=== PATIENT | male | born 1950 | race Caucasian/White ===

== ENCOUNTER 2018-03-06 20:32 | Inpatient (IN) | payer MEDICARE ==
[~2018-03-06] VITALS: Ht 177.8 cm; Wt 72.7 kg
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
--- NOTE | ~2018-03-06 | PN ---
PATIENT:SUNNY WAITE MEDICAL RECORD: [id number] LOCATION:DOMINIC Gudino112 ADMISSION DATE: 03/06/18 PROGRESS NOTE DATE OF SERVICE: 03/11/2018 SUBJECTIVE: The patient's case was discussed with staff. He has no new complaint. OBJECTIVE: The patient is in good behavioral control, but still is having some depressive symptoms. He denies that he is going to hurt himself. ASSESSMENT: No change in diagnoses. PLAN: I have reviewed the patient's current medications and I believe that if he continues to make progress at this rate, he should be able to reasonably leave the hospital in a few days. His long-term prognosis is guarded. TRANSINT:[id number] Voice Confirmation ID: [id number] DOCUMENT ID: [id number] ANTHONY HARRELL MD at 1325 CC: [id number] DICTATION DATE: 03/11/18 1430 SURFACE GRINDER TENDER: 03/11/18 1542 ADM IN [place] [address] [place] [id number]
--- NOTE | ~2018-03-06 | PN ---
PATIENT:SUNNY WAITE MEDICAL RECORD: [id number] LOCATION:DOMINIC HendricksonBrennan112 ADMISSION DATE: 03/06/18 PROGRESS NOTE DATE OF SERVICE: 03/22/2018 SUBJECTIVE: The patient's case was discussed with staff. He has no new complaint. OBJECTIVE: The patient is in good behavioral control with limited insight about his condition. He generally tolerates his medicines well. ASSESSMENT: No change in diagnoses. PLAN: Supportive and educational interventions were made. Long-term prognosis is guarded. TRANSINT:[id number] Voice Confirmation ID: [id number] DOCUMENT ID: [id number] ANTHONY HARRELL MD at 1936 CC: [id number] DICTATION DATE: 03/22/18 1437 HEAD OF ART: 03/22/18 1523 ADM IN [place] [id number] [place] [address]
--- NOTE | ~2018-03-06 | PN ---
PATIENT:SUNNY WAITE MEDICAL RECORD: [id number] LOCATION:DOMINIC Gudino112 ADMISSION DATE: 03/06/18 PROGRESS NOTE DATE OF SERVICE: 03/19/2018 SUBJECTIVE: The patient's case was discussed with staff. He has no new complaint. OBJECTIVE: The patient denies intent to harm himself or others. He tolerates his medicines well. ASSESSMENT: No change in diagnoses. PLAN: Current medicines and therapies have been reviewed and will be maintained. Long-term prognosis is guarded. TRANSINT:[id number] Voice Confirmation ID: [id number] DOCUMENT ID: [id number] ANTHONY HARRELL MD at 1200 CC: [id number] DICTATION DATE: 03/19/18 1335 MANAGER CASH: 03/19/18 1430 ADM IN [place] [address] [place] [address]
--- NOTE | ~2018-03-06 | PN ---
PATIENT:SUNNY WAITE MEDICAL RECORD: [id number] LOCATION:DOMINIC Gudino112 ADMISSION DATE: 03/06/18 PROGRESS NOTE DATE OF SERVICE: 03/10/2018 SUBJECTIVE: The patient's case was discussed with staff. He has no new complaint. OBJECTIVE: The patient is in good behavioral control with limited insight about his condition. He does tolerate his medicines well. ASSESSMENT: No change in diagnoses. PLAN: It may become necessary to increase his Ultram slightly. His long-term prognosis is guarded. TRANSINT:[id number] Voice Confirmation ID: [id number] DOCUMENT ID: [id number] ANTHONY HARRELL MD at 1409 CC: [id number] DICTATION DATE: 03/10/18 1026 MEDIA MARKETING DIRECTOR: 03/10/18 1642 ADM IN [facility] [address] [place] [address]
--- NOTE | ~2018-03-06 | PN ---
PATIENT:SUNNY WAITE MEDICAL RECORD: [id number] LOCATION:DOMINIC [address]rickson[address]rennan112 ADMISSION DATE: 03/06/18 PROGRESS NOTE DATE OF SERVICE: 03/27/2018 SUBJECTIVE: The patient's case was discussed with staff. He has no new complaint. OBJECTIVE: The patient is in good behavioral control. He has no psychotic symptoms and no agitation. ASSESSMENT: No change in diagnoses. PLAN: The patient is going to be discharged today. His sister is going to manage his medications. She insists that she can do so even if he objects. Follow up will be with Dr. Messer in the [facility]. TRANSINT:[id number] Voice Confirmation ID: [id number] DOCUMENT ID: [id number] ANTHONY HARRELL MD at 1308 CC: [id number] DICTATION DATE: 03/27/18 1414 RESCUE INSTRUCTOR: 03/27/18 1446 DIS IN 03/27/18 [place] [id number] [place] [address]
--- NOTE | ~2018-03-06 | PN ---
PATIENT:SUNNY WAITE MEDICAL RECORD: [id number] LOCATION:DOMINIC Gudino112 ADMISSION DATE: 03/06/18 PROGRESS NOTE DATE OF SERVICE: 03/13/2018 SUBJECTIVE: No new complaint noted. OBJECTIVE: The patient denies suicidal ideation. He does continue to complain of pain, but no new pain complaints. On exam, mood is pleasant. Affect is reserved. Speech is terse. Content of thought focuses on somatic concerns. Sensorium shows no change. ASSESSMENT: No change in diagnoses. PLAN: 1. Continue current medication. 2. Continue supportive therapy. TRANSINT:[id number] Voice Confirmation ID: [id number] DOCUMENT ID: [id number] NASEEM SCHWARZ III, MD at 0736 CC: [id number] DICTATION DATE: 03/13/1858 DREDGE MATE: 03/13/18 1342 ADM IN [place] [address] [place] [address]
--- NOTE | ~2018-03-06 | PN ---
PATIENT:SUNNY WAITE MEDICAL RECORD: [id number] LOCATION:DOMINIC Tamez ADMISSION DATE: 03/06/18 PROGRESS NOTE DATE OF SERVICE: 03/12/2018 SUBJECTIVE: The patient's case was discussed with staff. He has no new complaint. OBJECTIVE: The patient has had a significant amount of agitation. He has been disruptive and difficult for staff to redirect. ASSESSMENT: No change in diagnoses. PLAN: The patient will be given Geodon at a dose of 20 mg twice daily. Geodon is being used to treat his underlying agitation and thought disorganization. He will be monitored for clinical changes associated with its use. TRANSINT:[id number] Voice Confirmation ID: [id number] DOCUMENT ID: [id number] ANTHONY HARRELL MD at 1409 CC: [id number] DICTATION DATE: 03/12/18 174 COUTURE ALTERATIONS DRESSMAKER: 03/12/18 [address] [facility] [address] [place] [address]
--- NOTE | ~2018-03-06 | PN ---
PATIENT:SUNNY WAITE MEDICAL RECORD: [id number] LOCATION:DOMINIC Gudino112 ADMISSION DATE: 03/06/18 PROGRESS NOTE DATE OF SERVICE: 03/18/2018 SUBJECTIVE: The patient's case was discussed with staff. He has no new complaint. OBJECTIVE: The patient is denying any intent to harm himself or others. He has not been aggressive today. He has no overt psychotic symptoms. ASSESSMENT: No change in diagnoses. PLAN: The patient's Geodon will be increased to 20 mg twice daily to assist with thought disorganization. [facility] is evaluating him today for long term placement. TRANSINT:[id number] Voice Confirmation ID: [id number] DOCUMENT ID: [id number] ANTHONY HARRELL MD at 1325 CC: [id number] DICTATION DATE: 03/18/18 1330 FAA CERTIFIED POWERPLANT MECHANIC: 03/18/18 1356 ADM IN [facility] [address] [place] [address]
--- NOTE | ~2018-03-06 | PN ---
PATIENT:SUNNY WAITE MEDICAL RECORD: [id number] LOCATION:DOMINIC Gudino112 ADMISSION DATE: 03/06/18 PROGRESS NOTE DATE OF SERVICE: 03/21/2018 SUBJECTIVE: The patient's case was discussed with staff. He has no new complaint. OBJECTIVE: The patient denies intent to harm himself or others. He is tolerating his medicines well. ASSESSMENT: No change in diagnoses. PLAN: The patient will be transitioned out of the hospital soon if this level of improvement is maintained. TRANSINT:[id number] Voice Confirmation ID: [id number] DOCUMENT ID: [id number] ANTHONY HARRELL MD at 1406 CC: [id number] DICTATION DATE: 03/21/18 1400 ASSOCIATE PROFESSOR OF CRIMINAL JUSTICE: 03/21/18 1411 ADM IN [place] [id number] [place] [id number]
--- NOTE | ~2018-03-06 | PN ---
PATIENT:SUNNY WAITE MEDICAL RECORD: [id number] LOCATION:DOMINIC Gudino112 ADMISSION DATE: 03/06/18 PROGRESS NOTE DATE OF SERVICE: 03/14/2018 SUBJECTIVE: The patient's case was discussed with staff. He has no new complaint. OBJECTIVE: The patient is in good behavioral control with poor insight about his condition. He tolerates his medicines well. ASSESSMENT: No change in diagnoses. PLAN: The patient looks a little sedated. I am going to reduce the dose of his Klonopin and Geodon both. Both will be cut in half. It may take a day or two for him to reestablish a therapeutic or steady stable blood level. I do not think he is endangered by his current dosage. I just think he is slightly over sedated. TRANSINT:[id number] Voice Confirmation ID: [id number] DOCUMENT ID: [id number] ANTHONY HARRELL MD at 1312 CC: [id number] DICTATION DATE: 03/14/18 1432 TALENT ACQUISITION ASSISTANT: 03/14/18 1448 ADM IN [facility] [address] [place] [id number]
--- NOTE | ~2018-03-06 | PN ---
PATIENT:SUNNY WIATE MEDICAL RECORD: [id number] LOCATION:DOMINIC HendricksonBrennan112 ADMISSION DATE: 03/06/18 PROGRESS NOTE DATE OF SERVICE: 03/20/2018 SUBJECTIVE: The patient's case was discussed with staff. He has no new complaint. OBJECTIVE: The patient is in good behavioral control and is not showing any aggressive behaviors. ASSESSMENT: No change in diagnoses. PLAN: The patient can be transitioned out of the hospital soon. We are waiting on placement details and if they are forthcoming, I would anticipate in the next couple of days he could be released. TRANSINT:[id number] Voice Confirmation ID: [id number] DOCUMENT ID: [id number] ANTHONY HARRELL MD at 1343 CC: [id number] DICTATION DATE: 03/20/18 1203 MODEL MAKER SCALE: 03/20/18 1355 ADM IN [facility] [address] [place] [address]
--- NOTE | ~2018-03-06 | PN ---
PATIENT:SUNNY WAITE MEDICAL RECORD: [id number] LOCATION:DOMINIC Gudino112 ADMISSION DATE: 03/06/18 PROGRESS NOTE DATE OF SERVICE: 03/15/2018 SUBJECTIVE: No new complaint. OBJECTIVE: The patient slept well last night. His behavior has improved. We are currently waiting on BOC assessment. On exam, mood for the most part euthymic. Affect bland. Speech rather terse. Content of thought is negative for overt psychosis. Sensorium is unchanged. ASSESSMENT: No change in diagnosis. PLAN: 1. Continue current medication. 2. Continue supportive therapy. TRANSINT:[id number] Voice Confirmation ID: [id number] DOCUMENT ID: [id number] NASEEM SCHWARZ III, MD at 0841 CC: [id number] DICTATION DATE: 03/15/18 1032 SALES OPERATIONS SPECIALIST: 03/15/18 1112 ADM IN [place] [address] [place] [id number]
--- NOTE | ~2018-03-06 | PN ---
PATIENT:SUNNY WAITE MEDICAL RECORD: [id number] LOCATION:DOMINIC Gudino112 ADMISSION DATE: 03/06/18 PROGRESS NOTE DATE OF SERVICE: 03/25/2018 SUBJECTIVE: The patient's case was discussed with staff. He has no new complaint. OBJECTIVE: The patient is in good behavioral control with poor insight about his condition. He does tolerate his medicines well. ASSESSMENT: No change in diagnoses. PLAN: I anticipate the patient can be transitioned out of the hospital tomorrow if arrangements can be made. His sister is going to care for him, he is willing to go there. He needs some durable medical equipment and hopefully that can be delivered this afternoon or in the morning. [facility] up [facility] with the [facility]. TRANSINT:[id number] Voice Confirmation ID: [id number] DOCUMENT ID: [id number] ANTHONY HARRELL MD at 1435 CC: [id number] DICTATION DATE: 03/25/18 1449 PRISON OFFICER: 03/25/18 1641 ADM IN [place] [id number] [place] [address]
--- NOTE | ~2018-03-06 | PN ---
PATIENT:SUNNY WAITE MEDICAL RECORD: [id number] LOCATION:DOMINIC Gudino112 ADMISSION DATE: 03/06/18 PROGRESS NOTE DATE OF SERVICE: 03/09/2018 SUBJECTIVE: The patient's case was discussed with staff. He has no new complaint. OBJECTIVE: The patient is in good behavioral control with limited insight about his condition. He continues to complain a fair amount about discomfort in his arm. ASSESSMENT: No change in diagnoses. PLAN: The patient is much calmer and cooperative. I am going to increase his Klonopin slightly. I do not think he has had enough of the Ultram to determine if it is going to be helpful. TRANSINT:[id number] Voice Confirmation ID: [id number] DOCUMENT ID: [id number] ANTHONY HARRELL MD at 1001 CC: [id number] DICTATION DATE: 03/09/18 1156 CASH APPLICATIONS ASSOCIATE: 03/09/18 1207 ADM IN [place] [id number] [place] [address]
--- NOTE | ~2018-03-06 | PN ---
PATIENT:SUNNY WAITE MEDICAL RECORD: [id number] LOCATION:DOMINIC Gudino112 ADMISSION DATE: 03/06/18 PROGRESS NOTE DATE OF SERVICE: 03/08/2018 SUBJECTIVE: The patient's case was discussed with staff. He has no new complaint. OBJECTIVE: The patient is in good behavioral control with limited insight about his condition. He tolerates his medicines well. ASSESSMENT: No change in diagnoses. PLAN: Brief supportive and educational interventions were made. Long-term prognosis is guarded. I anticipate the patient can be transitioned out of the hospital soon if this level of improvement is maintained. TRANSINT:[id number] Voice Confirmation ID: [id number] DOCUMENT ID: [id number] ANTHONY HARRELL MD at 1130 CC: [id number] DICTATION DATE: 03/08/18 1449 SITE SAFETY MANAGER: 03/08/18 1558 ADM IN [facility] [address] [place] [address]
--- NOTE | ~2018-03-06 | PN ---
PATIENT:SUNNY WAITE MEDICAL RECORD: [id number] LOCATION:DOMINIC Gudino112 ADMISSION DATE: 03/06/18 PROGRESS NOTE DATE OF SERVICE: 03/26/2018 SUBJECTIVE: The patient's case was discussed with staff. He has no new complaint. OBJECTIVE: The patient is in good behavioral control. His sister says that she will keep his medications and not allow him to take more than the prescribed amount. Dr. Messer's nurse practitioner is going to follow up with him, understands that he is on a benzodiazepine and a narcotic and she is consulting with Dr. Messer and he is willing to continue the patient on these medications. The patient has very limited insight about his situation. He has no thoughts of harming himself or others. He is excited about going home and seeing his sister. He insists that the Seroquel he was taking when he came in helped him focus and calmed him significantly. I am going to start him on a second antipsychotic medication for this purpose and it will be Seroquel at a low dose. I have given consideration to metabolic syndrome and given this patient's overall situation, I do not think this is ideal, but I think it is reasonable to keep him functional and out of the hospital. His long-term prognosis is exceedingly poor. ASSESSMENT: No change in diagnoses. PLAN: The patient will be transitioned out of the hospital tomorrow. Followup will be with Dr. Messer or his nurse practitioner. TRANSINT:[id number] Voice Confirmation ID: [id number] DOCUMENT ID: [id number] ANTHONY HARRELL MD at 1352 CC: [id number] DICTATION DATE: 03/26/18 1450 BEAUTY THERAPIST: 03/26/18 1605 ADM IN [facility] [address] [place] [address]
--- NOTE | ~2018-03-06 | PN ---
PATIENT:SUNNY WAITE MEDICAL RECORD: [id number] LOCATION:DOMINIC Gudino112 ADMISSION DATE: 03/06/18 PROGRESS NOTE DATE OF SERVICE: 03/23/2018 SUBJECTIVE: The patient's case was discussed with staff. He has no new complaint. OBJECTIVE: The patient is in good behavioral control with limited insight about his condition. He generally tolerates his medicines well. ASSESSMENT: No change in diagnoses. PLAN: Brief supportive and educational interventions were made. Long-term prognosis is guarded. I anticipate he could be transitioned out of the hospital soon if this level of improvement is maintained. TRANSINT:[id number] Voice Confirmation ID: [id number] DOCUMENT ID: [id number] ANTHONY HARRELL MD at 0822 CC: [id number] DICTATION DATE: 03/23/18 1209 COMBAT SYSTEMS OPERATOR: 03/23/18 1228 ADM IN [facility] [address] [place] [address]
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
[2018-03-06 22:12] VITALS: BP 155/73
[2018-03-07] MEDS ORDERED: CATAPRES0.3 MG PO (05:52)
[2018-03-07] MEDS ORDERED: FLOMAX0.4 MG PO (05:52)
[2018-03-07] MEDS ORDERED: ZOLOFT50 MG PO (05:52)
[2018-03-07] MEDS ORDERED: LIPITOR20 MG PO (05:53)
[2018-03-07] MEDS ORDERED: ASPIRIN81 MG PO (05:53)
[2018-03-07] MEDS ORDERED: BACLOFEN10 MG PO (05:54)
[2018-03-07] MEDS ORDERED: KEPPRA500 MG PO (05:55)
[2018-03-07 07:45] LABS: APPEARANCE CLEAR (CLEAR); BILIRUBIN NEGATIVE (NEGATIVE); COLOR DK YELLOW (YELLOW); GLUCOSE NEGATIVE (NEGATIVE); KETONE SMALL mg/dL (NEGATIVE); NITRITE NEGATIVE (NEGATIVE); PROTEIN NEGATIVE (NEGATIVE)
[2018-03-08 08:47] VITALS: BP 124/60
[2018-03-08 19:17] VITALS: BP 141/50
[2018-03-09 07:35] VITALS: BP 132/75
[2018-03-09 19:40] VITALS: BP 120/64
[2018-03-10 07:00] VITALS: BP 118/49
[2018-03-10 20:25] VITALS: BP 150/69
[2018-03-11 08:30] VITALS: BP 82/56
[2018-03-11 21:02] VITALS: BP 101/50
[2018-03-12 07:46] VITALS: BP 129/56
[2018-03-12 20:19] VITALS: BP 139/58
[2018-03-13 07:59] VITALS: BP 155/52
[2018-03-13 13:11] VITALS: Ht 177.8 cm; Wt 72.7 kg
[2018-03-13 19:22] VITALS: BP 118/55
[2018-03-14 08:22] VITALS: BP 177/62
[2018-03-14 19:54] VITALS: BP 150/51
[2018-03-15 08:02] VITALS: BP 151/63
[2018-03-15 10:52] LABS: BASOPHILS 0.4 % (0-2); EOSINOPHILS 2.4 % (0-7); HEMOGLOBIN 12.7 g/dL (13.5-17.5); IMMATURE GRANULOCYTES 0.3 % (0-5); LYMPHOCYTES 23.3 % (15-50); MCH 31.8 pg (26.0-34.0); MCHC 33.4 g/dL (31.0-37.0); MEAN PLATELET VOLUME 11.3 fL (7.4-10.4); MONOCYTES 10.8 % (2-11); NEUTROPHILS 62.8 % (40-80); PLATELET COUNT 223 10x3/uL (130-400); RDW 14.1 % (11.5-14.5); WBC 10.4 10x3/uL (4.8-10.8)
[2018-03-15 11:29] LABS: ALBUMIN 3.3 g/dL (3.4-5.0); ALKALINE PHOSPHATASE 94 U/L (46-116); ALT (SGPT) 23 U/L (10-68); CALC OSMOLALITY 288 mosm/kg (275-300); CALCIUM 9.5 mg/dL (8.5-10.1); CARBON DIOXIDE 31.4 mmol/L (21.0-32.0); CHLORIDE - SERUM 107 mmol/L (98-107); CHOL - HDL RATIO 3.6 ratio (2.3-4.9); CHOLESTEROL, TOTAL 158 mg/dL (0-200); CREATININE - SERUM 0.9 mg/dL (0.6-1.3); GLUCOSE 114 mg/dL (74-106); HDL CHOLESTEROL 44 mg/dL (32-96); LDL CHOLESTEROL 86 mg/dL (0-100); POTASSIUM - SERUM 4.8 mmol/L (3.5-5.1); PROTEIN - SERUM 6.8 g/dL (6.4-8.2); SODIUM 143 mmol/L (136-145); THYROID STIMULATING HORMONE 3.51 uIU/mL (0.36-3.74); TRIGLYCERIDE 142 mg/dL (30-200); UREA NITROGEN 22 mg/dL (7-18); eGFR NON AFRICAN AMERICAN 90 mL/min (90-120)
[2018-03-15 20:03] VITALS: BP 150/43
[2018-03-16 09:26] VITALS: BP 125/40
[2018-03-16 20:50] VITALS: BP 132/51
[2018-03-17 07:56] VITALS: BP 110/42
[2018-03-17 19:47] VITALS: BP 156/57
[2018-03-18 07:00] VITALS: BP 131/74
[2018-03-18 19:46] VITALS: BP 147/82
[2018-03-19 09:24] VITALS: BP 133/52
[2018-03-19 19:21] VITALS: BP 133/53
[2018-03-20 08:01] VITALS: BP 107/59
[2018-03-20 20:17] VITALS: BP 141/48
[2018-03-21 09:57] VITALS: BP 125/56
[2018-03-21 20:33] VITALS: BP 133/56
[2018-03-22 07:50] VITALS: BP 120/40
[2018-03-22 20:17] VITALS: BP 165/60
[2018-03-23 07:44] VITALS: BP 108/87
[2018-03-23 19:56] VITALS: BP 176/76
[2018-03-24 07:23] VITALS: BP 198/65
[2018-03-24 19:55] VITALS: BP 80/41
[2018-03-25 07:00] VITALS: BP 113/47
[2018-03-25 21:02] VITALS: BP 136/53
[2018-03-26 07:49] VITALS: BP 140/62
[2018-03-26 12:15] LABS: BASOPHILS 0.4 % (0-2); EOSINOPHILS 3.8 % (0-7); HEMATOCRIT 33.7 % (42.0-54.0); HEMOGLOBIN 11.3 g/dL (13.5-17.5); IMMATURE GRANULOCYTES 0.3 % (0-5); LYMPHOCYTES 25.9 % (15-50); MCH 31.1 pg (26.0-34.0); MCHC 33.5 g/dL (31.0-37.0); MCV 92.8 fL (80.0-100.0); MEAN PLATELET VOLUME 11.1 fL (7.4-10.4); MONOCYTES 9.5 % (2-11); NEUTROPHILS 60.1 % (40-80); PLATELET COUNT 193 10x3/uL (130-400); RBC 3.63 10x6/uL (4.20-6.10); RDW 13.9 % (11.5-14.5); WBC 7.6 10x3/uL (4.8-10.8)
[2018-03-26] MEDS ORDERED: ZOLOFT100 MG PO (14:52)
[2018-03-26] MEDS ORDERED: CATAPRES0.1 MG PO (14:52)
[2018-03-26] MEDS ORDERED: KLONOPIN0.5 MG PO (14:53)
[2018-03-26] MEDS ORDERED: HYDROCODONE-APA1 TAB PO (14:55)
[2018-03-26] MEDS ORDERED: LYRICA75 MG PO (14:59)
[2018-03-26] MEDS ORDERED: GEODON20 MG PO (15:01)
[2018-03-26] MEDS ORDERED: CALMOSEPTINE OI71 GM TOPICAL (15:01)
[2018-03-26] MEDS ORDERED: FLORAJEN3 CAPS460 MG PO (15:02)
[2018-03-26] MEDS ORDERED: LINZESS145 MCG PO (15:02)
[2018-03-26 20:25] VITALS: BP 153/66
[2018-03-27 09:30] VITALS: BP 170/53
== END 2018-03-27 15:00 | disposition home or self-care (01) | DRG 57 ==
LOC: D.PSYCH 20:32
PROVIDERS: Family Medicine; Psychiatry & Neurology Psychiatry
DX: I69.818 Other symptoms and signs involving cognitive functions following other cerebrovascular disease (principal); F01.51 Vascular dementia, unspecified severity, with behavioral disturbance; F33.2 Major depressive disorder, recurrent severe without psychotic features; L03.116 Cellulitis of left lower limb; I69.318 Other symptoms and signs involving cognitive functions following cerebral infarction; R56.9 Unspecified convulsions; I10 Essential (primary) hypertension; F60.2 Antisocial personality disorder; E78.00 Pure hypercholesterolemia, unspecified; Z72.0 Tobacco use; E78.5 Hyperlipidemia, unspecified; J44.9 Chronic obstructive pulmonary disease, unspecified; N40.0 Benign prostatic hyperplasia without lower urinary tract symptoms; E11.40 Type 2 diabetes mellitus with diabetic neuropathy, unspecified; K59.00 Constipation, unspecified; G89.29 Other chronic pain; M79.89 Other specified soft tissue disorders; M79.672 Pain in left foot